=== PATIENT | female | born 1970 | race Caucasian/White ===

== ENCOUNTER 2022-03-19 05:30 | Outpatient (CLI) | payer MEDICARE ==
[~2022-03-19] VITALS: Ht 162.6 cm; Wt 69.8 kg
[~2022-03-19 05:30] MED LIST: ACHD5005 PO; ACHYD1T PO; ALBU17AE23 IH; ALBU5SOL10 IH; ALBU8.5H2 IH; ARIP2TAB3 PO; ASP81CT PO; BUDE10.22 IH; CETI5TAB6 PO; CETIRIZINE; CIPR-225 PO; CIPR500S2 PO; CLIN150C2 PO; CLON1TAB3 PO; CPR500T PO; DCS100C PO; DESV100T PO; DESV25TA PO; DIPH50CA33 PO; DOXE25CA46 PO; ESOM20CA PO; FLUO20CA25 PO; GABA-486 PO; GBPN300C PO; HYDR-3583 PO; HYDR-3781 PO; IBP800T PO; LEVO125T6 PO; LEVOTHYROXINE; LOPE-134 PO; LRT10T PO; LVT.112T PO; MIRT-68 PO; MTP25TSR PO; NF-ABIL15T PO; OMEP40CA36 PO; ONDA8TAB9 PO; PANT40TA52 PO; PHEN100T17 PO; PNT40TEC PO; POLY17PO23 PO; PRAZ5CAP2 PO; PRM25T PO; PSYL425P10 PO; QVAR IH; SLMFT1E INH; TOPI50TA37 PO; TPR25T PO; TRZ50T PO; [UNRECOGNIZED DRUG - OTHER]; [UNRECOGNIZED DRUG - OTHER] PO
[2022-03-19] MEDS ORDERED: CETI10TA24 PO (14:07)
[2022-03-19] MEDS ORDERED: ESZO3TAB30 PO (14:27)
[2022-03-19] MEDS ORDERED: GABA-486 PO (14:27)
[2022-03-19] MEDS ORDERED: VENL150T PO (14:27)
[2022-03-19] MEDS ORDERED: MIDO5TAB3 PO (14:27)
[2022-03-19] MEDS ORDERED: LEVO150T6 PO (14:27)
[2022-03-19] MEDS ORDERED: LETR2.5T6 PO (14:27)
[2022-03-19] MEDS ORDERED: LIRA0.6P3 SQ (14:27)
== END 2022-03-19 15:08 | disposition home or self-care (01) ==
LOC: PREOP 05:30
PROVIDERS: ATTEND Podiatrist Foot & Ankle Surgery
DX: Z01.818 Encounter for other preprocedural examination (principal)

== ENCOUNTER 2022-03-27 06:01 | Day surgery (SDC) | payer MEDICARE ==
[~2022-03-27] VITALS: Ht 162.6 cm; Wt 69.8 kg
[2022-03-27] VITALS (10 sets, daily range): BP systolic 94–118; BP diastolic 54–78
[~2022-03-27 06:01] MED LIST changes: +CETI10TA24 PO; +ESZO3TAB30 PO; +LETR2.5T6 PO; +LEVO150T6 PO; +LIRA0.6P3 SQ; +MIDO5TAB3 PO; +VENL150T PO
[2022-03-27] MEDS ORDERED: CLINDAMYCIN 600 MG/50 ML IVPB 50 ML IV ONE (06:15)
[2022-03-27] MEDS ORDERED: LACTATED RINGERS 1,000 ML IV PRN (06:15)
[2022-03-27] MEDS ORDERED: proPOfol 200 MG/20 ML (DIPRIVAN) VIAL IV ONE ×2 (06:59→08:21)
[2022-03-27] MEDS ORDERED: fentaNYL INJ 100 MCG/2 ML AMP ONE (06:59)
[2022-03-27] MEDS ORDERED: LIDOCAINE PF 2% 5 ML (XYLOCAINE) VIAL ONE (06:59)
[2022-03-27] MEDS ORDERED: MIDAZOLAM 2 MG/2 ML (VERSED) VIAL ONE (06:59)
[2022-03-27] MEDS ORDERED: ONDANSETRON 4 MG/2 ML (SDV) Z0FRAN ONE (06:59)
[2022-03-27] MEDS ORDERED: BUPIVACAINE 0.5% 30 ML (SENSORCAINE) VIAL ONE (07:11)
[2022-03-27] MEDS ORDERED: LIDOCAINE 1% INJ 20 ML VIAL ONE (07:11)
--- NOTE | 2022-03-27 07:49 | Progress Note-Pre Operative ---
Pre-Operative Progress Note Date of Available H&P: Mar 27, 2022 Date H&P Reviewed: Mar 27, 2022 Time H&P Reviewed: 07:49 Pre-Operative Diagnosis: Hallux Valgus, 2nd Hammertoe, left BHARATHI BROWN DPM Mar 27, 2022 07:49
[2022-03-27] MEDS ORDERED: PHENYLEPHRINE 100 MCG/ML 10 ML (ANESTHESIA) SYR ONE (08:33)
[2022-03-27] MEDS ORDERED: BUPIVACAINE 0.5% 30 ML (SENSORCAINE) VIAL INJ ONE (08:47)
[2022-03-27] MEDS ORDERED: LIDOCAINE 1% INJ 20 ML VIAL INJ ONE (08:48)
[2022-03-27] MEDS ORDERED: SEVOFLURANE (ULTANE) 15 ML INHAL SOLN ONE (09:44)
[2022-03-27] MEDS ORDERED: HYDROmorphone 2 MG/ML VIAL (DILAUDID) ONE (09:47)
--- NOTE | 2022-03-27 10:01 | Progress Note-Post Operative ---
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
[2022-03-27] MEDS ORDERED: CLIN150C2 PO (10:05)
[2022-03-27] MEDS ORDERED: ACHD5005 PO (10:05)
[2022-03-27] MEDS ORDERED: HYDROcodone/APAP 5 MG/325 MG (LORTAB) TAB PO PRN (10:15)
[2022-03-27] MEDS ORDERED: LACTATED RINGERS 1,000 ML IV SCH (10:15)
[2022-03-27] MEDS ORDERED: ONDANSETRON 4 MG/2 ML (SDV) Z0FRAN IVP PRN (10:15)
[2022-03-27] MEDS ORDERED: HYDROmorphone 2 MG/ML VIAL (DILAUDID) IV ONE (10:15)
--- NOTE | 2022-03-27 14:42 | Diagnostic Imaging Report ---
EXAMINATION: Left foot radiographs, 2 views. COMPARISON: February 14, 2016. HISTORY: 51-year-old female, status post left foot surgery. FINDINGS: There is a fixation pin traversing the second digit phalanges. There are postoperative changes of the distal aspect of the second proximal phalanx. There is a fixation screw in the second metatarsal head. There is a fixation pin at the level of the distal aspect of the first metatarsal with osteotomy changes of the first metatarsal. There is uncovering of the lateral sesamoid. There are osteotomy changes of the first proximal phalanx with metallic wire at this site. The hardware appears intact. There is no identified cortical or aggressive bone destruction. There is normal variant congenital fusion of the fifth digit middle and distal phalanges. IMPRESSION: 1. Postoperative changes as above without identified complication. Dictated by: Dictated on workstation # [id number]
--- NOTE | 2022-03-27 18:55 | OPERATIVE REPORT ---
DATE OF SERVICE: 03/27/2022 SURGEON: Bharathi Brown DPM. PREOPERATIVE DIAGNOSES: 1. Hallux abductovalgus metatarsal primus varus, left. 2. Hammer digit syndrome, left second toe. POSTOPERATIVE DIAGNOSES: 1. Hallux abductovalgus metatarsal primus varus, left. 2. Hammer digit syndrome, left second toe. 3. Degenerative joint disease, left first metatarsophalangeal joint. PROCEDURES: 1. Modified Zechariah-Claus bunionectomy, left. 2. Reduction of hammertoe, left second digit. WOUND CLASS: Clean. ANESTHESIA: General. HEMOSTASIS: Pneumatic thigh tourniquet at 250 mmHg. INDICATIONS: This 51-year-old female presents complaining of a painful left foot. Conservative therapy has met with unsatisfactory results and the patient is agreeable to surgical intervention after risks and complications were discussed at length. No guarantees were extended to the patient and she is willing to proceed. DESCRIPTION OF PROCEDURE: The patient was brought back to the operating table and placed in secure supine position. A general anesthetic was then induced. Procedure anesthetic was performed with local injection consisting of 10 mL of 1:1 mixture of 1% Xylocaine and 0.5% Marcaine injected in a Rosario block of 10 mL total. This also included a block to the second digit of the left foot. The left lower extremity had a thigh tourniquet placed over the left lower extremity over several layers padding. Of course, appropriate timeout was performed. The left foot was prepped and draped in normal sterile manner. The left foot was then elevated allowed to exsanguinate after which the tourniquet was inflated to 250 mmHg. Attention was then directed to the dorsal aspect of the left first metatarsophalangeal joint where a 6 cm longitudinal linear incision was created. The incision was deepened in the same plane with great care to identify and retract all vital neurovascular structures. Only necessary blood vessels were cauterized as encountered. The incision was deepened down to the capsular tissue where a longitudinal capsulotomy was performed. The capsular tissue was reflected demonstrating a medial eminence of the first metatarsal head, which was resected utilizing a power sagittal saw. The dorsal aspect of the first metatarsal head was also resected with a power sagittal saw. Fortunately, this included an area of full-thickness degeneration associated with the dorsal spurring of the articular cartilage. Once the dorsal spur was removed surgically, this also removed the area of full-thickness degeneration of the articular cartilage. The wound was flushed with copious amounts of normal saline. Next, a blunt dissection was carried out into the first intermetatarsal space where a lateral release was performed. The lateral capsulorrhaphy was performed to the first metatarsophalangeal joint. The conjoined tendon of the adductor hallucis was released as well as a release of the fibular sesamoidal ligament. Attention was directed to the medial aspect of the first metatarsal where at the surgical neck a Chevron type osteotomy was performed allowing the capital fragment to translocate laterally and was fixated in its corrected position utilizing a 0.062 threaded K-wire, driven from dorsal proximal to plantar distal across the osteotomy with great care not to penetrate the articular cartilage. The K-wire was cut flush with the dorsal aspect of the first metatarsal shaft. The wound was flushed with copious amounts of normal saline. The head was further contoured and smoothed with power bur. Attention was then directed to the proximal phalanx of the left hallux where subperiosteal dissection was carried out. Next, a wedge of bone was resected with a power sagittal saw with the base medial and the lateral cortices held intact. Two agricultural pilot holes were created at the dorsal medial aspect of the osteotomy after which a 28-gauge monofilament wire was passed through these agricultural pilot hole securing the osteotomy in a closed position. The wound was flushed with copious amounts of normal saline once again after which closure was performed in layers. Deep closure was performed with 3-0 Vicryl, superficial with 4-0 Vicryl, skin closed with 4-0 Prolene in a horizontal mattress type stitch. Attention was then directed to the dorsal aspect of the left second toe where the angulation at the distal portion of the digit was noted beginning at the proximal interphalangeal joint area. Hyperkeratotic lesion was noted to the medial and lateral aspect of the proximal interphalangeal joint. An incision was created from the surgical neck of the second metatarsal head area to the distal interphalangeal joint. The incision was deepened in the same plane with great care to identify and retract all vital neurovascular structures. Only necessary blood vessels were cauterized as encountered. The incision was deepened down to the extensor tendon where Z-slide lengthening was performed. The extensor tendon was reflected proximally and a dorsal capsulorrhaphy performed at the metatarsophalangeal joint. The medial and lateral collateral ligaments were resected at the proximal interphalangeal joint. Next, the head of the proximal phalanx was fashioned into a PEG utilizing a power sagittal saw and power bur and a hole was created to the base of the middle phalanx with a power bur for the peg-in-hole type arthrodesis. Next, utilizing a 0.054 smooth K-wire, the arthrodesis site was secured in a rectus alignment. The end of the K-wire was cut and a protective ball placed over the end of the wire. A good reduction of the bony prominence of the medial and lateral aspect of the proximal interphalangeal joint was noted as well as improved alignment of the digit. The wound was flushed with copious amounts of normal saline and closure was performed in layers. Deep closure was performed with 3-0 Vicryl, superficial with 4-0 Vicryl, skin closed with 4-0 Prolene in a horizontal mattress type stitch. Postoperative injection consisted of 10 mL of 0.5% Marcaine injected in a local infusion to the surgical sites. Postoperative dressing consisted of Betadine-soaked Adaptic, sterile 4 x 4s, sterile Kerlix all secured with a Coban wrap. The patient tolerated the anesthesia and procedure well and was transported from the operating room to the recovery room with vital signs stable and vascular status intact to all digits of the left foot. She is to follow up in my office in 10 days' period of time or sooner if necessary. She was given a prescription for clindamycin as well as Vicodin. A prescription for crutches and instructions were also dispensed for nonweightbearing on the left lower extremity. Job ID: [id number] DocumentID: [id number] Dictated Date: 03/27/2022 10:17:39 [employer] Date: 03/27/2022 18:53:00 Dictated By: BHARATHI BROWN DPM
== END 2022-03-27 12:00 | disposition home or self-care (01) ==
LOC: SDC 06:01
PROVIDERS: ATTEND Podiatrist Foot & Ankle Surgery
DX: M20.42 Other hammer toe(s) (acquired), left foot (principal); Q66.212 Congenital metatarsus primus varus, left foot; M19.072 Primary osteoarthritis, left ankle and foot; Z28.310 Unvaccinated for COVID-19; E03.9 Hypothyroidism, unspecified; Z85.3 Personal history of malignant neoplasm of breast; E66.9 Obesity, unspecified; Z68.26 Body mass index [BMI] 26.0-26.9, adult
CPT/HCPCS: 28285; 28296; 73620; 87081; C1713